=== PATIENT | male | born 1985 | race Caucasian/White ===

== ENCOUNTER 2025-06-23 19:31 | Emergency (ER) | payer BC, MEDICAID, SELFPAY ==
[2025-06-23 19:52] VITALS: BP 147/92; PULSE 86; RESP 18; TEMP 36.7; O2SAT 97; BMI 25.1
--- NOTE | 2025-06-23 21:22 | W.ED.SKABFB ---
HPI - Skin/Abscess/Foreign Bdy General: Chief complaint: Skin/Abscess/Foreign Body Stated complaint: Hands/ Feet peeling Time Seen by Provider: 06/23/25 20:12 Source: patient Mode of arrival: ambulatory Limitations: no limitations History of Present Illness: Patient is a 39-year-old male who presents emergency department complaining of rash to hands and feet. States that this has been going on for over a year, and that the bottom of his feet and the digits will peel. States that he has been told this is eczema in the past, has taken an [id number] steroid cream before that has worked. Notes that he was in [facility] for much of the last year and was unable to have this looked at and the treatment of it was infrequent. Also states he has not established with primary care at all. No trouble breathing or other signs or symptoms of anaphylaxis. No angioedema or tongue or throat swelling. Rash is itchy in nature, states that sometimes there will be pustules that popped up. Vital stable at this time, otherwise no other symptoms and he has not taken any other medications. No known contact exposure that he can report. MD complaint: rash Onset (ago): year(s) Pain Consistency: intermittent Relieving factors: topical medication Context: other (Nonspecific, was incarcerated) Associated symptoms: Deny chills, fever(s), nausea or vomiting Related Data Previous Rx's ?Medication ?Instructions ?Recorded cephalexin 500 mg capsule 500 mg PO Q6H 5 days #20 caps 06/23/25 triamcinolone acetonide 0.5 % 1 applic topical BID #15 grams 06/23/25 topical ointment Allergies Allergy/AdvReac Type Severity Reaction Status Date / Time No Known Allergies Allergy Verified 06/23/25 20:00 Review of Systems General: Reports: 10 or more systems reviewed and unremarkable except in HPI and below Const: Denies: fever(s) or chills Card: Denies: chest pain Resp: Denies: dyspnea GI: Denies: abdominal pain, nausea, vomiting or diarrhea Musc: Denies: extremity pain or joint pain Skin/Breast: Reports: rash, pruritus and lesions; Denies: skin pain or skin tenderness Neuro: Denies: headache(s) Physical Exam Const: COMMON NORMALS: no acute distress, average body habitus, patient oriented x3, no limitations, healthy appearing, alert and well nourished OTHER: Nontoxic, no respiratory distress, no angioedema, no signs or symptoms of anaphylaxis HENMT: COMMON NORMALS: normocephalic and atraumatic HEAD & SCALP: normocephalic and atraumatic Neck/C-Spine: COMMON NORMALS: full ROM, no lymphadenopathy, supple and no meningeal signs Resp: COMMON NORMALS: normal respiratory effort, No use of accessory muscles and clear to auscultation bilaterally AUSCULTATION: clear to auscultation bilaterally Cardio: COMMON NORMALS: regular rate and regular rhythm RATE: regular rate RHYTHM: regular rhythm Extremity: COMMON NORMALS: full ROM and capillary refill normal Neuro: COMMON NORMALS: patient oriented x3 SENSORIUM/ORIENTATION: Yes alert MENINGEAL SIGNS: Yes no meningeal signs Skin: COMMON NORMALS: turgor normal NARRATIVE SKIN EXAM: Eczematous/peeling rash to digits of bilateral hands, as well as to plantar aspect of both feet. GENERAL SKIN EXAM: turgor normal Course Vital Signs: Vital signs: Vital Signs Temperature 98.1 F 06/23/25 19:52 Pulse Rate 86 06/23/25 19:52 Respiratory Rate 18 06/23/25 19:52 Blood Pressure 147/92 06/23/25 19:52 Pulse Oximetry 97 06/23/25 19:52 Oxygen Delivery Me thod Room Air 06/23/25 19:52 MDM - Skin/Abscess/Foreign Bdy Medicial Decision Making This the rash does appear eczematous, will treat with topical steroid but due to the systemic nature of it and his previous exposure to staph infections we will also treat with oral antibiotics. He had no signs or symptoms of anaphylaxis and he will be referred to dermatology for reevaluation and told to return with any signs or symptoms of anaphylaxis. He agrees with this plan. No radiology studies performed this visit Discharge Plan Discharge Patient Disposition: Home Clinical Impression: Dermatitis Condition: Stable Prescriptions: New triamcinolone acetonide 0.5 % ointment 1 applic topical BID Qty: 15 0RF cephalexin 500 mg capsule 500 mg PO Q6H 5 Days Qty: 20 0RF Discharge Orders: Discharge ED (Routine); Ordered 06/23/25 Ordered By: Toan Greene Patient Instructions: Patient Portal & Aysha Instructions Activity Restrictions/Additional Instructions: Please follow-up with dermatology. Take the antibiotics as prescribed. Apply the topical steroid. Please return with any new or worsening. Print Language: Icelandic Coding Level of Care Code ED Wealth Management Advisor for Braldy Burgos
[2025-06-23 21:54] VITALS: BP 125/72; PULSE 77; RESP 17; O2SAT 94
--- NOTE | 2025-06-24 12:04 | DCPLANNER ---
Message sent to Dermatology
== END 2025-06-23 21:57 | disposition home or self-care (01) ==
PROVIDERS: Emergency Provider Physician Assistant
DX: L30.9 Dermatitis, unspecified (principal)
CPT/HCPCS: 99283; J9999